=== PATIENT | female | born 1990 | race Caucasian/White ===

== ENCOUNTER 2023-08-25 22:16 | Emergency (ER) | payer OTHER, SELFPAY ==
[2023-08-25 22:18] VITALS: BP 118/76
--- NOTE | 2023-08-25 22:42 | ED.GENMED ---
History of Present Illness
<TERESITA Gutiérrez - Last Filed: 08/26/23 07:11>
General
Chief Complaint: Musculo-Skeletal Complaint
Source: patient and significant other
Exam Limitations: none
Time Seen by Provider: 08/25/23 22:38
Nursing documentation reviewed up to this point in time: agreed with
History of Present Illness
History of Present Illness:
33 year old female currently 33 weeks presents for evaluation of dislocated jaw. Pt has a history of TMJ, and has had several episodes of jaw dislocation/locking in the past, but notes that it has always self-reduced within seconds.
She notes that tonight however, her jaw has been locked in place for the last two hours. She endorses 7/10 pain that is worsened by speaking. She and her have applied warm compresses and attempted range of motion exercises without relief. Pt
denies SOB, fever, cough, fatigue, chills, recent dental surgery, recent trauma, gum and tooth pain. Her has been complicated by gestational diabetes as well as a congenital heart defect of the fetus. Pt is following up routinely with her
[facility].
Review of Systems
<TERESITA Gutiérrze - Last Filed: 08/26/23 07:11>
Review of Systems
Allergies reviewed?: Yes
Constitutional: Reports no symptoms
EENT: Reports other (jaw pain/trismus)
Respiratory: Reports no symptoms
Cardiac: Reports no symptoms
ABD/GI: Reports no symptoms
: Reports no symptoms
Musculoskeletal: Reports joint pain
Skin: Reports no symptoms
Neurological: Reports no symptoms
Endocrine: Reports no symptoms
Hematologic/Lymphatic: Reports no symptoms
Psychiatric: Reports no symptoms
Phy Exam
<TERESITA Gutiérrez - Last Filed: 08/26/23 07:11>
General Physical Exam
General Presentation: well appearing
General age: appears stated age
General Skin: warm
General Habitus: normal
General Mental: alert
General Hydration: appears well hydrated
ENT Exam
ENT Exam: pharynx normal, neck supple and normocephalic
Additional ENT: no adenopathy, tonsillar exudates or abscesses
Cardiovascular Exam
Cardiovascular Exam: regular rate/rhythm
Pulmonary Exam
Pulmonary Exam: lungs clear, no respiratory distress and no stridor
Musculoskeletal Exam
Musculoskeletal Exam: other (mandible dislocated and immobile )
Course
<TERESITA Gutiérrez - Last Filed: 08/26/23 07:11>
Vital Signs
Initial and Last Documented VS:
Initial Vital Signs
Temp Pulse Resp BP Pulse Ox
98.1 F 74 20 118/76 99
08/25/23 22:18 08/25/23 22:18 08/25/23 22:18 08/25/23 22:18 08/25/23 22:18
Last Documented Vital Signs
Temp Pulse Resp BP Pulse Ox
98.1 F 74 20 118/76 99
08/25/23 22:18 08/25/23 22:18 08/25/23 22:18 08/25/23 22:18 08/25/23 22:18
<Alesha Smith DO - Last Filed: 08/25/23 23:14>
Vital Signs
Initial and Last Documented VS:
Initial Vital Signs
Temp Pulse Resp BP Pulse Ox
98.1 F 74 20 118/76 99
08/25/23 22:18 08/25/23 22:18 08/25/23 22:18 08/25/23 22:18 08/25/23 22:18
Last Documented Vital Signs
Temp Pulse Resp BP Pulse Ox
98.1 F 74 20 118/76 99
08/25/23 22:18 08/25/23 22:18 08/25/23 22:18 08/25/23 22:18 08/25/23 22:18
<TERESITA Gutiérrez - Last Filed: 08/26/23 07:11>
MDM/Problems Addressed
Differential Diagnosis Includes:
mandible dislocation
<Alesha Smith DO - Last Filed: 08/25/23 23:14>
*Pulse Oximetry
Patient hypoxic: no
*Critical Care Note
Total Time (30-74mins, 75-104mins- exclusive of procedures): Not Applicable
ED Attending Note
<TERESITA Gutiérrez - Last Filed: 08/26/23 07:11>
-
Portions of this chart may have been created with voice recognition software.� Occasional wrong word or��sound alike� substitutions may have occurred due to the inherent limitations of voice recognition software.
<Alesha Smith DO - Last Filed: 08/25/23 23:14>
ED Attending Note
Patient seen and examined by attending physician: Yes
ED Attending Note:
This is a 33-year-old woman, 1 para 0 currently 33 weeks , history of TMJ disorder who presents with bilateral spontaneous mandible dislocation after yawning tonight. She does admit to similar episodes in the past but generally
brief in nature, mandible self reduces usually within a few seconds. Tonight however mandible remains dislocated over the past 2 hours. She does admit to mild to moderate pain bilateral TMJ region. No sore throat, no gagging, no difficulty
swallowing. No neck pain.
Current is complicated with congenital heart disorder, intrauterine growth retardation. will require urgent cardiac surgery at . She has been following with specialist at [facility].
33-year-old woman appears her stated age, bright and alert, pleasant, appears in mild distress, obvious bilateral mandible dislocation, holding mouth agape. No respiratory distress, handling secretions well. is accompanying.
HEENT: Bilateral mandible dislocation. Mild tenderness about the TMJ joint. There is no soft tissue swelling. Oral mucosa is moist. Posterior pharynx is clear.
Neck is supple, nontender, no adenopathy.
Heart is regular rate and rhythm.
Respirations are easy nonlabored.
Abdomen: Gravid. Nontender.
Extremities: No clubbing or cyanosis no edema. Peripheral pulses are full and equal. Nontender.
Awake alert and oriented x 3. No focal neurodeficits. Gait is alcantar and steady.
Bilateral mandible dislocation easily reduced by myself with inferior then forward traction of mandible bilaterally.
Patient tolerated procedure well. No sedation required.
Postreduction she has full mandible range of motion without difficulty nor pain.
Recommend local ice to bilateral TMJ over the next 1 to 2 days then transition to heat as needed.
May take Tylenol as needed for pain.
Recommend limiting diet to soft foods over the next several days.
Follow-up with PCP versus ENT for recheck as needed.
Discharge Plan
Departure
Patient Disposition: Home (Routine Discharge)
Date of Disposition: 08/26/23
Patient with high blood pressure during this ER visit?: No
Discharge Problem:
Closed dislocation of mandible
Instructions: Soft Diet, Dislocated Jaw (DC)
Referrals:
Delroy Christian DO [Family Provider] - As needed
Interventions
Interventions:
*Risk Screen - Suicide Last Done: 08/25/23 22:18
*General Assessment Last Done: 08/25/23 22:18
*Neglect/Abuse Screening Last Done: 08/25/23 22:18
*ED COVID-19 Vaccine History Last Done: 08/25/23 22:42
*Nursing Disposition Last Done: 08/25/23 23:12
ED-Musculoskeletal Assessment Last Done: 08/25/23 23:12
Discharge Date and Time
Discharge Date/Time: 08/25/23 23:12
Print Language: PERSIAN
== END 2023-08-25 23:12 | disposition home or self-care (01) ==
LOC: EMR 22:16
PROVIDERS: EMERGENCY PHYSICIAN Emergency Medicine; FAMILY PHYSICIAN Internal Medicine
DX: O26.893 Other specified pregnancy related conditions, third trimester (principal); S03.03XA Dislocation of jaw, bilateral, initial encounter; X58.XXXA Exposure to other specified factors, initial encounter; Z3A.33 33 weeks gestation of pregnancy
CPT/HCPCS: 99283; 21480